=== PATIENT | female | born 2005 | race Caucasian/White ===

== ENCOUNTER 2024-11-19 08:36 | Outpatient (REF) | payer BC, SELFPAY ==
--- NOTE | ~2024-11-19 | US_ITS ---
EXAMINATION: US PELVIS CLINICAL INFORMATION: Long intrauterine device string. Heavy irregular bleeding. COMPARISON: None available. TECHNIQUE: Ultrasound of the pelvis is performed using both transabdominal and transvaginal transducers along with Doppler. Transvaginal imaging is performed due to inadequate visualization transabdominally. FINDINGS: Uterus: The uterus is in retroversion flexion and measures 7 x 4 x 5 cm. Volume: 78 cc. The double wall endometrial thickness is 8 mm. The uterus demonstrates normal morphology and echotexture without gross soft tissue attenuation lesions in the myometrium. There is an intrauterine contraceptive device that extends to the endocervical canal. Adnexa: The ovaries are identified with normal flow on color Doppler interrogation and scattered follicles.. No free fluid in the cul-de-sac. . Right ovary measures 2 x 2 x 3 cm. Volume: 6 cc. No gross solid or cystic lesion. Scattered follicles. Left ovary measures 2 x 1 x 1 cm. Volume: 2 cc. Scattered follicles. No gross solid or cystic lesion. US/US pelvic and transvaginal IMPRESSION: Low position of the intrauterine contraceptive device in the endocervical canal. No gross uterine fibroid. Ovaries are normal. Electronically signed by: Jm Noel MD 11/19/2024 12:26 PM EDT
--- OUTSIDE RECORDS SUMMARY | 2024-11-19 10:22 | XMS_ITS | Clinical Summary ---
Author Organization Formerly [facility] Address [address] [place] [id number] Care Team Providers Care Medical Administrator Name Role Phone Unknown Primary Care Provider [phone] -[phone] Allergies No known active allergies Medications ferrous sulfate 325 (65 FE) MG tablet Take 325 mg by mouth daily. Take 2 hours before or 4 hours after acid reducers. Active Active Problems No known active problems Family History Medical History Relation Name Comments Venous thrombosis Neg Hx Social History Tobacco Use Types Packs/Day Years Used Date Smoking Tobacco: Never Smokeless Tobacco: Never Tobacco Cessation:Counseling Given: Not Answered Comments Unknown Sex and Gender Information Value Date Recorded Sex Assigned at Not on file Legal Sex Female 8:55 PM EDT Gender Identity Female 06/17/2020 12:16 PM EDT Sexual Orientation Not on file Last Filed Vital Signs Vital Sign Reading Time Taken Comments Blood Pressure 136/80 05/18/2022 3:26 PM EDT Pulse 86 05/18/2022 3:26 PM EDT Temperature 37 C (98.6 F) 05/18/2022 3:26 PM EDT Respiratory Rate 16 09/06/2020 10:0 1 AM EDT Oxygen Saturation 99% 05/18/2022 3:26 PM EDT Inhaled Oxygen Concentration - - Weight 67.9 kg (149 lb 12.8 oz) 05/18/2022 3:26 PM EDT Height - - Body Mass Index - - Plan of Treatment Health Maintenance Due Date Last Done Comments Hepatitis C Virus Screening 2003 HIV Screening 12/15/2016 HPV Vaccines (1 - 3-dose series) 12/15/2018 DTaP/Tdap/Td Vaccines (1 - Tdap) 12/15/2022 Hepatitis B Vaccines (1 of 3 - 19+ 3-dose series) 12/15/2022 Influenza Vaccine 10/04/2024 COVID-19 Vaccine (2 - 2024-2 6 season) 2024 02/06/2021 Pneumococcal Vaccine: Pediat josemanuel (0-5 Years) and At-Risk Patients (6 to 49 Years) Aged Out No longer eligible b ased on patient's age to complete this topic Insurance [facility] Care Teams Medical Administrator Relationship Specialty Start Date End Date Unknown Unknow Provider Address PCP - General 09/06/20
== END 2024-11-19 08:37 | disposition home or self-care (01) ==
LOC: HO.UMASIMG 08:36
PROVIDERS: Visit Provider Nurse Practitioner Women's Health
DX: Z30.431 Encounter for routine checking of intrauterine contraceptive device (principal)
CPT/HCPCS: 76830; 76856

== ENCOUNTER → 2024-11-19 11:36 | Outpatient (BNV) | payer BC, SELFPAY | PROVIDERS: Visit Provider Radiology Diagnostic Radiology | DX: N92.1 Excessive and frequent menstruation with irregular cycle (principal); Z97.5 Presence of (intrauterine) contraceptive device | CPT/HCPCS: 76830; 76856 ==